=== PATIENT | female | born 1985 | race American Indian/Alaskan Native ===

== ENCOUNTER 2016-06-28 12:40 | Emergency (ER) | payer MEDICAID ==
[2016-06-28] MEDS ORDERED: MOTRIN PO ONE (16:19)
[2016-06-28 16:40] VITALS: BP 98/60
--- NOTE | 2016-06-29 11:28 | Emergency Department Report ---
Entered by HARMAN KAY, acting as scribe for MICHAEL CHAVEZ NP. ED Lower Extremity HPI - General Chief Complaint: Extremity Injury, Lower Stated Complaint: TOE INFECTION Time Seen by Provider: 06/28/16 15:25 Source: patient Mode of arrival: Ambulatory Limitations: No Limitations - History of Present Illness Initial Comments: 30 year old female presents to the ED c/o an infection to lateral nail/tissue fold on the right hallux. Patient states that she had purulent drainage from her right hallux 2 days ago. She denies any trauma or injury. Patient data last month she went to a nail salon, have noticed these symptoms. Associated symptoms includes minimal pain to palpation to right hallux, but denies current purulent drainage, numbness, tingling, edema, and erythema. She rates her pain a 4 out 10 in severity. NKDA. PASCAL Complaint: other (infection to lateral nail/tissue fold on the right hallux ) Onset/Timin -: week(s) Injury: Foot: Right (lateral nail/tissue fold on the right hallux pain, not injury) Type of Injury: other (lateral nail/tissue fold on the right hallux pain) Place: home Severity: mild Severity scale (0 -10): 4 Improves With: nothing Worsens With: palpation Associated Symptoms: ambulatory. denies: swelling, numbness, tingling, other ( purulent drainage, right hallux edema and erythema, but reports right hallux pain ) - Related Data Previous Rx's Medication Instructions Recorded Last Taken Type Cephalexin [Keflex] 500 mg PO Q12HR #10 cap 06/28/16 Unknown Rx Naproxen [Naprosyn TAB] 375 mg PO PRN PRN #10 tablet 06/28/16 Unknown Rx Allergies Allergy/AdvReac Type Severity Reaction Status Date / Time No Known Allergies Allergy Unverified 06/28/16 12:55 ED Review of Systems Comment: All other systems reviewed and negative Constitutional: denies: other (tingling and purulent drainage) ENT: denies: ear pain, throat pain Respiratory: denies: cough, shortness of breath, wheezing Cardiovascular: denies: chest pain, palpitations Gastrointestinal: denies: abdominal pain, nausea, diarrhea Genitourinary: denies: urgency, dysuria, discharge Musculoskeletal: other (minimal pain to affected area on right hallux ). denies : joint swelling (right hallux) Skin: other (infection to lateral nail fold on the right hallux, but denies right hallux edema and erythema ). denies: rash Neurological: denies: numbness Psychiatric: denies: anxiety, depression ED Past Medical Hx - Past Medical History Previous Medical History?: Yes Additional medical history: vaginal delivery 01-21-2016 - Surgical History Past Surgical History?: No - Social History Smoking Status: Never Smoker Substance Use Type: Non Opiate Pain - Medications Home Medications: Home Medications Medication Instructions Recorded Confirmed Last Taken Type Cephalexin [Keflex] 500 mg PO Q12HR #10 cap 06/28/16 Unknown Rx Naproxen [Naprosyn TAB] 375 mg PO PRN PRN #10 tablet 06/28/16 Unknown Rx ED Physical Exam - General Limitations: No Limitations General appearance: alert, in no apparent distress - Head Head exam: Present: atraumatic, normocephalic - Eye Eye exam: Present: normal appearance, EOMI - ENT ENT exam: Present: normal exam, mucous membranes moist - Neck Neck exam: Present: normal inspection, full ROM - Respiratory Respiratory exam: Present: normal lung sounds bilaterally. Absent: respiratory distress - Cardiovascular Cardiovascular Exam: Present: regular rate, normal rhythm - GI/Abdominal GI/Abdominal exam: Present: soft, normal bowel sounds - Extremities Exam Extremities exam: Present: normal inspection, full ROM, tenderness (slightly to lateral nail/tissue fold on the right hallux ), normal capillary refill, other ( at this time there is no purulent drainage of the right hallux toe). Absent: pedal edema, joint swelling, calf tenderness - Expanded Lower Extremity Exam Right Hip exam: Present: normal inspection, full ROM Upper Leg exam: Present: normal inspection, full ROM Knee exam: Present: normal inspection, full ROM Lower Leg exam: Present: normal inspection, full ROM Ankle exam: Present: normal inspection, full ROM Foot/Toe exam: Present: normal inspection, full ROM, tenderness (lateral nail fold on the right hallux ). Absent: swelling, abrasion, laceration, ecchymosis , deformity, erythema, puncture wound Neuro vascular tendon exam: Present: no vascular compromise. Absent: pulse deficit, abnormal cap refill, motor deficit, sensory deficit, tendon deficit, pallor Gait: Positive: observed and normal - Back Exam Back exam: Present: normal inspection, full ROM - Neurological Exam Neurological exam: Present: alert, oriented X3 - Psychiatric Psychiatric exam: Present: normal affect, normal mood - Skin Skin exam: Present: warm, dry, intact. Absent: rash, erythema (lateral nail fold on the right hallux ), abrasion, ecchymosis, other (right hallux swelling) ED Course Vital Signs 06/28/16 06/28/16 12:55 16:15 Temperature 98.5 F Pulse Rate 64 58 L Respiratory 20 16 Rate Blood Pressure 118/75 Blood Pressure 98/60 [Left] O2 Sat by Pulse 97 100 Oximetry ED Lower Extremity MDM - Medical Decision Making Ed course: This is a 30-year-old female that presents with onychomycosis of right hallux toe 1- I cleansed the area with normal saline. No complications noted. 2- instructed patient to keep area dry and clean 3- prescribed ibuprofen 600 mg. 4- instructed the patient to follow up with a sociology professor in 3-5 days. 5- at this time the patient is nontoxic or ill appearance. 6- prescribed Keflex for cellulites of tissue fold around right hallux toe. 7- at the time of discharge patient agrees with discharge plan and has no further questions. ED Disposition Clinical Impression: Cellulitis of toe, left Paronychia Qualifiers: Laterality: left Qualified Code(s): L03.012 - Cellulitis of left finger Disposition: DISCHARGED TO HOME OR SELFCARE Is pt being admited?: No Does the pt Need Aspirin: No Condition: Stable Instructions: Paronychia (ED) Additional Instructions: Please follow-up with a sociology professor in 3-5 days. Please take antibiotics as prescribed. Keep area clean and dry. ACC any signs and symptoms of swelling, redness, numbness, fever or chills with report beds emergency room. Prescriptions: Cephalexin [Keflex] 500 mg PO Q12HR #10 cap Naproxen [Naprosyn TAB] 375 mg PO PRN PRN #10 tablet PRN Reason: Pain Referrals: PRIMARY CARE,MD [Primary Care Provider] - 3-5 Days [facility] [Outside] - 3-5 Days [facility] [Outside] - 3-5 Days BASIL TIWARI DPM [Staff Physician] - 2-3 Days This documentation as recorded by the RAHUL berg JASMINE,accurately reflects the service I personally performed and the decisions made by me,MICHAEL CHAVEZ, ABEL.
== END 2016-06-28 16:59 | disposition home or self-care (01) ==
LOC: ED 12:40
DX: L03.032 Cellulitis of left toe (principal); L03.012 Cellulitis of left finger
CPT/HCPCS: 99283